=== PATIENT | female | born 1970 | race Hispanic/Latino ===

== ENCOUNTER 2024-11-07 08:47 | Day surgery (SDC) | payer SELFPAY ==
[2024-11-03 11:51] LABS: Absolute Eosinophils 0.2 K/uL (0-0.5); Absolute Lymphocytes (CBC) 1.7 K/uL (0.7-4.9); Absolute Monocytes 0.4 K/uL (0.1-1.3); Absolute Neutrophil 3.8 K/uL (1.8-8.0); Basophils % 0.8 % (0-1.3); Eosinophils % 2.7 % (0-4.4); Hematocrit 44.4 % (36.0-45.0); Hemoglobin 15.3 g/dL (12.0-15.0); Lymphocytes % 28.2 % (15.3-44.8); MCH 31.5 pg (27.0-35.0); MCHC 34.6 g/dL (32.0-36.0); MPV 9.4 fL (7.6-11.3); Monocytes % 6.4 % (3.3-12.3); Neutrophils % 61.9 % (41.7-73.7); Nucleated Red Blood Cells % 0.1 % (0-0); Platelets 235 thou/uL (152-406); RBC Red Blood Cell Count 4.87 M/uL (3.86-4.86); Red Cell Distribution Width 12.8 % (12.1-15.2)
[2024-11-03 11:55] LABS: PT Prothrombin Time 11.5 SECONDS (10-13.0); PTT, Activated Partial Thromb 39.8 SECONDS (27.2-37.4); Protime INR 1.01
--- NOTE | 2024-11-03 11:58 | RAD REPORT ---
Procedure: Chest Pa And Lat (2 Views) HISTORY: Preop for knee surgery COMPARISON: none FINDINGS: The lungs appear clear of acute infiltrate. No significant pleural effusion noted. The heart is normal size. IMPRESSION: No acute abnormality is displayed.
[2024-11-03 12:03] LABS: Anion Gap 7.4 mEq/L (5.0-15.0); Potassium 3.4 mEq/L (3.5-5.1)
--- NOTE | 2024-11-04 10:57 | EKG ---
Test Date: 2024-11-03 Test Time: 11:35:23 Park Guide: MYKEL MEASUREMENT RESULTS: Intervals: Rate: 59 UT: 172 QRSD: 94 QT: 434 QTc: 429 [place]: P: 31 UT: 172 QRS: 1 T: 48 INTERPRETIVE STATEMENTS: Sinus bradycardia Otherwise normal ECG No previous ECG available for comparison Electronically Signed On 11-04-24 10:55:11 CDT by Dileep Doe
[2024-11-07] MEDS: Ringers Lactate 1,000 ML IV ONE (09:10)
[2024-11-07] MEDS ORDERED: SCOPOLAMINE HYDROBROMIDE PATCH TD ONE (09:33)
[2024-11-07] MEDS: SCOPOLAMINE HYDROBROMIDE PATCH TD ONE (09:39)
[2024-11-07] MEDS ORDERED: MIDAZOLAM HCL 2 MG/2 ML INJ ONE (09:45)
[2024-11-07] MEDS ORDERED: FENTANYL CITR 100 MCG/2 ML ONE (09:45)
[2024-11-07] MEDS ORDERED: dexAMETHasone 10 MG/ML VIAL ONE (09:45)
[2024-11-07] MEDS ORDERED: LIDOCAINE 2% MPF 5 ML VIAL ONE (09:45)
[2024-11-07] MEDS ORDERED: ONDANSETRON 4 MG/2 ML VIAL ONE (09:45)
[2024-11-07] MEDS ORDERED: propofoL 200 MG/20 ML VIAL IV ONE (09:45)
[2024-11-07] MEDS ORDERED: KETOROLAC 30 MG/ML INJ ONE (09:45)
[2024-11-07] MEDS: CEFAZOLIN SODIUM 2 GM/VIAL ONE (10:20)
[2024-11-07] MEDS: BUPIVACAINE 0.25% PF 10 ML VIAL ONE (10:56)
[2024-11-07 11:57] VITALS: TEMP 97
--- NOTE | 2024-11-07 12:04 | P.BOP ---
Preoperative diagnosis: Left knee medial meniscus tear Postoperative diagnosis: Same Primary procedure: Left knee arthroscopic partial medial meniscectomy Pigment Pumper: NONE,NONE Estimated blood loss: 2 cc Specimen: None Anesthesia: General Complications: None Implants: None Fluids & blood products: Per anesthesia record Transferred to: Recovery Room Condition: Good
--- NOTE | 2024-11-07 12:09 | P.OP ---
Preoperative diagnosis: Left knee medial meniscus tear Postoperative diagnosis: Same Primary procedure: Left knee arthroscopic partial medial meniscectomy Anesthesia: General Estimated blood loss: 2 cc Specimen: None Findings: See dictation Operative Technique: Indication For Procedure: Rachel is a 54-year-old female who presented to my clinic with signs, symptoms, and MRI findings consistent with a left knee medial meniscus tear. Patient failed conservative treat measures including corticosteroid injection. Given her pain and mechanical symptoms we elected to proceed with left knee arthroscopic partial medial meniscectomy. I discussed with the patient risks and benefits associated with operative and nonoperative treatment and she expressed understanding and elected to proceed with operative treatment. Description Of Procedure: After informed consent was obtained, the patient was identified in the preoperative holding area. The left lower extremity was marked. Patient was brought to the operating room transferred to the operative table in the supine fashion and placed under general anesthesia. The left lower extremity was then prepped and draped in usual sterile fashion. A time-out was initiated. The correct patient and procedure were performed and identified. The patient did receive preoperative prophylactic antibiotics. The left lower extremity was exsanguinated using an Esmarch and the tourniquet was inflated to 300 mmHg. Standard anterior medial and anterior lateral portals were created. The arthroscope was brought in via the anterolateral portal and a diagnostic arthroscopy was performed. The arthroscope was first part of the patellofemoral joint which was noted no significant chondromalacia changes of the trochlear groove. The arthroscope was then brought on the both medial and lateral gutters and there were no loose bodies found within the gutters. The arthroscope was first brought into the medial compartment with the patient was noted to have an complex tear of the medial meniscus body and posterior horn. A partial medial meniscectomy was performed using meniscal biters and arthroscopic shaver to smooth meniscal borders. 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 The arthroscope was then brought into the intercondylar notch where the patient was noted to have an intact ACL and PCL which were stable to probe. The arthroscope was and brought of the lateral compartment where the patient was noted to have a stable lateral meniscus without tear as well as no significant chondromalacia changes of the lateral femoral condyle or lateral tibial plateau. Arthroscopic instruments were then removed without complication. Wounds were then irrigated thoroughly with normal saline. Portals were approximated using a 3-0 Monocryl. Sterile dressings were applied. The patient was awakened and transferred to PACU in stable condition. Postoperative Plan: The patient will be weightbearing as tolerated on the left lower extremity. She will follow-up in clinic 1 week for wound check and dressing change. We will follow the post meniscectomy protocol 2 weeks postoperatively. Complications: None Implants: None Fluids & blood products: Per anesthesia record Transferred to: Recovery Room Condition: Good
[2024-11-07] MEDS: HYDROCODONE/APAP 5/325 MG TAB ONE (12:30)
[2024-11-07 14:21] VITALS: BP 132/71; O2SAT 98
== END 2024-11-07 13:15 | disposition home or self-care (01) ==
LOC: OR 08:47
PROVIDERS: ATTEND Orthopaedic Surgery Sports Medicine
PROC: 0SBD4ZZ Excision of Left Knee Joint, Percutaneous Endoscopic Approach (ICD-10-PCS; principal; 2024-11-07 10:20)
DX: S83.242A Other tear of medial meniscus, current injury, left knee, initial encounter (principal)
CPT/HCPCS: 36415; 71046; 80048; 85025; 85610; 85730; 93005; J1100; J2003; J2250; J2405; J2704; J3010; J7120